=== PATIENT | female | born 1980 | race Caucasian/White ===

== ENCOUNTER 2023-06-25 22:25 | Emergency (ER) | payer MEDICAID, OTHER ==
[~2023-06-25] VITALS: Ht 162.6 cm; Wt 72.7 kg
[~2023-06-25 22:25] MED LIST: NOCURR
[2023-06-25 22:32] VITALS: TEMP 97.8
[2023-06-25 23:30] VITALS: BP 136/81; PULSE 89; RESP 16
[2023-06-25] MEDS ORDERED: TRAM50TA5 PO (23:30)
[2023-06-25] MEDS ORDERED: VALA500T42 PO (23:30)
== END 2023-06-26 00:45 | disposition home or self-care (01) ==
LOC: EMS 22:27
DX: B02.9 Zoster without complications (principal); F17.210 Nicotine dependence, cigarettes, uncomplicated
CPT/HCPCS: 99283; Z7502

== ENCOUNTER 2023-12-11 22:39 | Emergency (ER) | payer MEDICAID ==
[~2023-12-11] VITALS: Ht 162.6 cm; Wt 61.4 kg
[~2023-12-11 22:39] MED LIST changes: +TRAM50TA5 PO; +VALA500T42 PO
[2023-12-11 22:47] VITALS: BP 142/87; PULSE 100; RESP 20; TEMP 98.7; O2SAT 100
== END 2023-12-12 02:59 | disposition left against medical advice (07) ==
LOC: EMS 22:39
DX: M54.6 Pain in thoracic spine (principal); Z53.21 Procedure and treatment not carried out due to patient leaving prior to being seen by health care provider

== ENCOUNTER 2024-05-15 18:57 | Emergency (ER) | payer MEDICAID ==
[~2024-05-15] VITALS: Ht 167.6 cm; Wt 72.0 kg
[2024-05-15] MEDS ORDERED: CEPH-558 PO (20:12)
[2024-05-15] MEDS ORDERED: ACET-66 PO (20:12)
[2024-05-15] MEDS ORDERED: IBUP-1554 PO (20:12)
[2024-05-15] MEDS ORDERED: DOXY-354 PO (20:12)
[2024-05-15] MEDS: IBUPROFEN 600 MG TABLET PO ONE (20:50)
[2024-05-15] MEDS: DOXYCYCLINE HYCLATE 100 MG TABLET PO ONE (20:50)
[2024-05-15] MEDS: CefTRIAXone SODIUM 1 GM/VIAL IM ONE (20:51)
[2024-05-15] MEDS: LIDOCAINE/PF 1% 2 ML VIAL IM ONE (20:51)
[2024-05-15] MEDS: ACETAMINOPHEN 500 MG TABLET PO ONE (20:51)
[2024-05-15 21:04] VITALS: BP 129/65; PULSE 92; RESP 16; TEMP 97.9; O2SAT 100
== END 2024-05-15 21:21 | disposition home or self-care (01) ==
LOC: EMS 18:57
DX: L02.211 Cutaneous abscess of abdominal wall (principal); F17.210 Nicotine dependence, cigarettes, uncomplicated
CPT/HCPCS: 99284; 10060; 96372; J0696; J3490